=== PATIENT | female | born 1950 | race Caucasian/White ===

== ENCOUNTER 2018-04-29 13:46 | Outpatient (CLI) | payer BC, MEDICARE, OTHER ==
--- NOTE | 2018-04-29 14:32 | XRAY Report ---
Reason: UNSP FRACTURE OF UNSP FOOT Procedure Date: 04/29/2018 Accession Number: [id number] / [id number] Procedure: XR - Foot 3 View RT CPT Code: FULL RESULT: EXAM: RIGHT FOOT RADIOGRAPHY EXAM DATE: 04/29/2018 02:00 PM. CLINICAL HISTORY: Unspecified fracture of unspecified foot. COMPARISON: None. TECHNIQUE: 3 views. FINDINGS: Bones: Normal. No fractures or bone lesions. Joints: Normal. No subluxations. Soft Tissues: Mild dorsal midfoot swelling of the soft tissues. IMPRESSION: No fracture or dislocation is identified. RADIA
== END 2018-04-29 13:47 | disposition home or self-care (01) ==
LOC: DI 13:46
PROVIDERS: ATTEND Internal Medicine
DX: S99.921A Unspecified injury of right foot, initial encounter (principal)

== ENCOUNTER 2019-02-22 15:46 | Outpatient (CLI) | payer BC, MEDICARE ==
--- NOTE | 2019-03-06 08:54 | Mammography Report ---
Reason: ROUTINE MAMMO Procedure Date: 02/22/2019 Accession Number: [id number] / [id number] Procedure: PERI - Screening Mammo w/Al CPT Code: Final Report FULL RESULT: EXAM: Screening Mammo w/Al DATE: 02/22/2019 4:18 PM CLINICAL HISTORY: Screening encounter. History of endometrial cancer. TECHNIQUE: (B) - Bilateral CC and MLO views were obtained. COMPARISON: 10/23/2015 and 07/30/2014. PARENCHYMAL PATTERN: (A) - The breast(s) demonstrate(s) scattered fibroglandular densities. FINDINGS: There are no suspicious masses, calcifications, or areas of distortion. IMPRESSION: Negative examination. BI-RADS category 1. RECOMMENDATION: (ANNUAL) - Recommend routine annual screening mammography. BI-RADS CATEGORY: (1) - Negative. STANDARD QUALIFYING STATEMENTS: 1. This examination was not reviewed with the aid of Computer-Aided Detection (CAD). 2. A negative or benign imaging report should not preclude biopsy if clinically suspicious findings are present. 3. Dense breasts may obscure an underlying neoplasm. 4. This examination was reviewed with the aid of 3D breast imaging (tomosynthesis).
== END 2019-02-22 15:47 | disposition home or self-care (01) ==
LOC: DI 15:46
PROVIDERS: ATTEND Internal Medicine
DX: Z12.31 Encounter for screening mammogram for malignant neoplasm of breast (principal)
CPT/HCPCS: 77063; 77067

== ENCOUNTER 2020-12-16 11:00 | Outpatient (CLI) | payer MEDICARE ==
--- NOTE | 2020-12-17 14:34 | Mammography Report ---
BILATERAL DIGITAL SCREENING MAMMOGRAM 3D/2D: 12/16/2020 CLINICAL: Routine screening. Comparison is made to exams dated: 02/22/2019 mammogram - [facility], 02/22/2016 m am[facility]rav[facility], and 07/30/2014 mammogram - [facility] [place]. There are scattered fibrogland ular elements in both breasts. No significant masses, calcifications, or other findings are seen in either breast. There has been no significant interval change. IMPRESSION: NEGATIVE There is no mammographic evidence of malignancy. A 1 year screening mammogram is recommended. This exam was interpreted at Station ID: [id number]. NOTE: For mammograms, a report in lay terms will be sent to the patient. Approximately 15% of breast malignancies will not be visualized mammographically. In the management of a palpable breast mass, a negative mammogram must not discourage biopsy of a clinically suspicious lesion. Electronically Signed By: Pavel Abdalla M.D. [email or web address]/penrad:12/16/2020 12:05:27 ACR BI-RADS Category 1: Negative 3341F PARENCHYMAL PATTERN: (A) - The breast(s) demonstrate(s) scattered fibroglandular densities. BI-RADS CATEGORY: (1) - 1 RECOMMENDATION: (ANNUAL) - Recommend routine annual screening mammography. [id number] 1 year screening LATERALITY: (B)
== END 2020-12-16 13:00 ==
LOC: DI.S 11:00
DX: Z12.31 Encounter for screening mammogram for malignant neoplasm of breast (principal)

== ENCOUNTER 2022-04-07 13:07 | Outpatient (CLI) | payer MEDICARE ==
--- NOTE | 2022-04-08 09:13 | Mammography Report ---
BILATERAL DIGITAL SCREENING MAMMOGRAM 3D/2D: 04/07/2022 CLINICAL: Routine screening. Comparison is made to exams dated: 12/16/2020 mammogram, 02/22/2019 mammogram - [facility], and 10/23/2015 mammogram - [facility]. There are scattered areas of fibroglandular density in both breasts (category b / 25%-50% glandular t issue). No significant masses, calcifications, or other findings are seen in either breast. There has been no significant interval change. IMPRESSION: NEGATIVE There is no mammographic evidence of malignancy. A 1 year screening mammogram is recommended. Based on the Tyrer Cuzick model (a risk assessment model) the patients lifetime risk is 3.0% and her 10 year risk is 2.0%. According to the ACR, ACS, and NCCN guidelines, an annual breast MRI exam steffany g with mammogram is recommended if the patients lifetime risk is 20% or greater. This exam was interpreted at Station ID: [id number]. NOTE: For mammograms, a report in lay terms will be sent to the patient. Approximately 15% of breast malignancies will not be visualized mammographically. In the management of a palpable breast mass, a negative mammogram must not discourage biopsy of a clinically suspicious lesion. Electronically Signed By: Sukhi avitia/kam:04/07/2022 17:12:52 ACR BI-RADS Category 1: Negative 3341F PARENCHYMAL PATTERN: (A) - The breast(s) demonstrate(s) scattered fibroglandular densities. BI-RADS CATEGORY: (1) - 1 RECOMMENDATION: (ANNUAL) - Recommend routine annual screening mammography. [id number] 1 year screening LATERALITY: (B)
== END 2022-04-07 13:08 | disposition home or self-care (01) ==
LOC: DI 13:07
PROVIDERS: ATTEND Internal Medicine
DX: Z12.31 Encounter for screening mammogram for malignant neoplasm of breast (principal)

== ENCOUNTER 2023-08-13 13:20 | Emergency (ER) | payer MEDICARE ==
--- NOTE | 2023-08-13 14:05 | ED Physician Documentation ---
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 Patient had just received a total of 25 treatments of radiation therapy to the brain last treatment was on August 10. Since then she has been having increased shortness of breath severe worsening back pain. She is on Eliquis right now for history of pulmonary embolism That she was diagnosed with this April. Patient's says that she is unable to ambulate more than 10 feet Without severe shortness of breath. PD PAST MEDICAL HISTORY - Past Medical History Past Medical History: Yes - Present Medications Home Medications: Ambulatory Orders Medication Instructions Recorded Confirmed Acetaminophen [Tylenol] 1 tab PO DAILY 08/13/23 08/13/23 Apixaban [Eliquis] 1 tab PO DAILY 08/13/23 08/13/23 Atorvastatin [Lipitor] 1 tab PO DAILY 08/13/23 08/13/23 Calcium Carbonate [Calcium] 1 tab PO DAILY 08/13/23 08/13/23 Insulin Lispro [Humalog] 1 unit SUBQ DAILY 08/13/23 08/13/23 Insulin NPH Human Isophane 1 unit SUBQ DAILY 08/13/23 08/13/23 [Humulin N Kwikpen] Lacosamide 1 tab PO DAILY 08/13/23 08/13/23 Levetiracetam [Keppra Xr] 1 tab PO DAILY 08/13/23 08/13/23 Losartan [Cozaar] 2 tab PO DAILY 08/13/23 08/13/23 Melatonin 1 tab PO DAILY 08/13/23 08/13/23 Memantine [Namenda] 2 tab PO DAILY 08/13/23 08/13/23 Multivitamin 1 tab PO DAILY 08/13/23 08/13/23 Nystatin [Klayesta] 1 applic TOP PRN PRN 08/13/23 08/13/23 Pantoprazole [Protonix] 1 tab PO DAILY 08/13/23 08/13/23 Senna [Senokot] 1 tab PO DAILY 08/13/23 08/13/23 Sertraline [Zoloft] 1 tab PO DAILY 08/13/23 08/13/23 Sitagliptin [Zituvio] 1 tab PO DAILY 08/13/23 08/13/23 Sulfamethox/Trimeth 800/160 1 tab PO DAILY 08/13/23 08/13/23 [Bactrim Ds] Zolpidem [Ambien] 1 tab PO DAILY PRN 08/13/23 08/13/23 amLODIPine [Norvasc] 1 tab PO DAILY 08/13/23 08/13/23 dexAMETHasone [Decadron] 1 tab PO DAILY 08/13/23 08/13/23 hydrOXYzine HCL [Hydroxyzine HCl] 1 tab PO PRN PRN 08/13/23 08/13/23 metFORMIN [Glucophage] 2 tab PO DAILY 08/13/23 08/13/23 polyethylene glycoL 3350 [Miralax] 1 applic PO PRN PRN 08/13/23 08/13/23 traZODone [Desyrel] 1 tab PO DAILY 08/13/23 08/13/23 - Allergies Allergies/Adverse Reactions: Allergies Allergy/AdvReac Type Severity Reaction Status Date / Time No Known Drug Allergies Allergy Verified 08/13/23 13:25 - Social History Does the pt smoke?: No Smoking Status: Never smoker Does the pt drink ETOH?: No Does the pt have substance abuse?: No - Immunizations Immunizations are current?: Yes PD ED PE NORMAL - Vitals Vital signs reviewed: Yes - General General: Alert and oriented X 3, No acute distress, Well developed/nourished - HEENT HEENT: Atraumatic, PERRL, EOMI - Cardiac Cardiac: RRR - Respiratory Respiratory: No respiratory distress, Clear bilaterally, Other (Diminished bilaterally) - Abdomen Abdomen: Normal bowel sounds, Soft, Non tender, No organomegaly - Back Back: No CVA TTP, No spinal TTP - Derm Derm: Normal color, Warm and dry, No rash - Neuro Neuro: Alert and oriented X 3, front office assistant 2-12 intact, No motor deficit, No sensory deficit, Normal speech - Psych Psych: Normal mood Results - Vitals Vitals: Vital Signs - 24 hr 08/13/23 08/13/23 08/13/23 13:20 15:10 16:03 Temperature 36.1 C L Heart Rate 85 74 74 Respiratory 17 18 19 Rate Blood Pressure 110/57 L 135/78 H 130/57 L O2 Saturation 95 98 94 08/13/23 17:25 Temperature Heart Rate 78 Respiratory 18 Rate Blood Pressure 134/82 H O2 Saturation 98 Oxygen O2 Source Room air - Labs Labs: Laboratory Tests 08/13/23 08/13/23 08/13/23 14:15 14:15 14:15 WBC 6.9 RBC 3.54 L Hgb 11.3 L Hct 35.8 L MCV 101.1 H MCH 31.9 H MCHC 31.6 L RDW 15.3 H Plt Count 167 MPV 9.7 Neut # (Auto) 6.0 Lymph # (Auto) 0.5 L [place] # (Auto) 0.3 Eos # (Auto) 0.0 Baso # (Auto) 0.0 Absolute Nucleated RBC 0.00 Nucleated RBC % 0.0 Sodium 139 Potassium 3.7 Chloride 107 Carbon Dioxide 25 Anion Gap 7.0 BUN 21 H Creatinine 1.1 Estimated GFR (MDRD) 49 L Glucose 207 H Calcium 9.0 Magnesium 1.3 L Total Bilirubin 0.3 AST 15 ALT 32 Alkaline Phosphatase 40 L Troponin I High Sens 6.8 Total Protein 5.1 L Albumin 3.5 Globulin 1.6 L Albumin/Globulin Ratio 2.2 Lipase 58 Nasal Adenovirus (PCR) Nasal B. parapertussis DNA (PCR) Nasal Coronavir 229E PCR Nasal Coronavir HKU1 PCR Nasal Coronavir NL63 PCR Nasal Coronavir OC43 PCR Nasal Enterovir/Rhinovir PCR Nasal Influenza B PCR Nasal Influenza A PCR Nasal Parainfluen 1 PCR Nasal Parainfluen 2 PCR Nasal Parainfluen 3 PCR Nasal Parainfluen 4 PCR Nasal RSV (PCR) Nasal B.pertussis DNA PCR Nasal C.pneumoniae (PCR) Haroldo Human Metapneumo PCR Nasal M.pneumoniae (PCR) Nasal SARS-CoV-2 (PCR) 08/13/23 14:15 WBC RBC Hgb Hct MCV MCH MCHC RDW Plt Count MPV Neut # (Auto) Lymph # (Auto) [place] # (Auto) Eos # (Auto) Baso # (Auto) Absolute Nucleated RBC Nucleated RBC % Sodium Potassium Chloride Carbon Dioxide Anion Gap BUN Creatinine Estimated GFR (MDRD) Glucose Calcium Magnesium Total Bilirubin AST ALT Alkaline Phosphatase Troponin I High Sens Total Protein Albumin Globulin Albumin/Globulin Ratio Lipase Nasal Adenovirus (PCR) NOT DETECTED Nasal B. parapertussis DNA (PCR) NOT DETECTED Nasal Coronavir 229E PCR NOT DETECTED Nasal Coronavir HKU1 PCR NOT DETECTED Nasal Coronavir NL63 PCR NOT DETECTED Nasal Coronavir OC43 PCR NOT DETECTED Nasal Enterovir/Rhinovir PCR NOT DETECTED Nasal Influenza B PCR NOT DETECTED Nasal Influenza A PCR NOT DETECTED Nasal Parainfluen 1 PCR NOT DETECTED Nasal Parainfluen 2 PCR NOT DETECTED Nasal Parainfluen 3 PCR NOT DETECTED Nasal Parainfluen 4 PCR NOT DETECTED Nasal RSV (PCR) NOT DETECTED Nasal B.pertussis DNA PCR NOT DETECTED Nasal C.pneumoniae (PCR) NOT DETECTED Haroldo Human Metapneumo PCR NOT DETECTED Nasal M.pneumoniae (PCR) NOT DETECTED Nasal SARS-CoV-2 (PCR) NOT DETECTED - Rads (name of study) Angio chest CT Relevant Findings:: Final report received, EMP independent interpretation of test, Other (No acute pulmonary process no pulmonary emboli) PD Medical Decision Making - ED course ED course: 73-year-old female presents emergency department for increased shortness of breath. Differentials include but are not limited to pneumonia, fatigue after extensive radiation treatment, deconditioning, pneumonia, worsening metastatic disease. CT angio for pulmonary embolism was complete and there is no evidence of pulmonary emboli unremarkable thoracic aorta, no acute pulmonary processes and no evidence of metastatic disease in the chest. There is no abnormalities of the thoracic spine. Labs were also complete while she was here she has no leukocytosis she appears to have chronic anemia, hemoglobin 11.3 she is not neutropenic. CMP also complete BUN slightly elevated at 21 GFR 49, magnesium 1.3, potassium normal. 50 mg IV magnesium was given in the ER as well as 1 L of IV fluids. Respiratory swab was negative. At this point in time I am not seeing anything obvious that is causing patient's increased shortness of breath. She does not appear to be in any acute distress she is not hypoxic and remains hemodynamically stable. Patient and her are eager to discharge home their main concern was possible pulmonary embolism. They plan on following up with oncology about today's ER visit for further evaluation and workup as needed. They were given strict ER return precautions and all questions answered. Departure - Departure Disposition: 01 Home, Self Care Clinical Impression: Hypomagnesemia, Back pain, Shortness of breath Instructions: ED Chest Pain Atypical Unkn Cause Comments: Thank you for trusting us with your care. We have completed a CT for further evaluation of possible pulmonary embolism and we are not seeing any acute findings on CT at this point in time. You are little bit low on your magnesium so gave you some IV magnesium here in the emergency department as well as some IV fluids as you do have a mild acute kidney injury. Please come back to the emergency department if you are having any worsening upper back pain, shortness of breath, chest pain, or difficulty breathing, or any other concerning symptoms. Please follow-up with your oncologist to let them know about today's ER visit. Forms: PCP List Discharge Date/Time: 08/13/23 17:25
[2023-08-13 14:39] LABS: EOSINOPHILS % (AUTO) 0.1 %; HCT - HEMATOCRIT 35.8 % (37.0-47.0); HGB - HEMOGLOBIN 11.3 g/dL (12.0-16.0); LYMPHOCYTES # (AUTO) 0.5 10^3/uL (1.5-3.5); LYMPHOCYTES % (AUTO) 7.6 %; MEAN CORPUSCULAR HEMOGLOBIN 31.9 pg (27.0-31.0); MEAN CORPUSCULAR HGB CONC 31.6 g/dL (32.0-36.0); MEAN CORPUSCULAR VOLUME 101.1 fL (81.0-99.0); MEAN PLATELET VOLUME 9.7 fL (7.9-10.8); MONOCYTES # (AUTO) 0.3 10^3/uL (0.0-1.0); MONOCYTES % (AUTO) 4.9 %; PLT - PLATELET COUNT 167 10^3/uL (130-450); RED BLOOD COUNT 3.54 10^6/uL (4.20-5.40); RED CELL DISTRIBUTION WIDTH 15.3 % (12.0-15.0); WHITE BLOOD COUNT 6.9 x10^3/uL (4.8-10.8)
[2023-08-13 14:52] LABS: MAGNESIUM 1.3 mg/dL (1.7-2.3)
[2023-08-13 14:58] LABS: ALBUMIN 3.5 g/dL (3.2-5.5); ALBUMIN/GLOBULIN RATIO 2.2 (1.0-2.2); BILIRUBIN,TOTAL 0.3 mg/dL (0.2-1.0); CREATININE 1.1 mg/dL (0.6-1.3); POTASSIUM 3.7 mmol/L (3.5-4.5); TOTAL PROTEIN 5.1 g/dL (6.4-8.9)
[2023-08-13] MEDS ORDERED: iohexoL-300 100 ML VIAL ONE (15:24)
[2023-08-13 15:26] LABS: B. PARAPERTUSSIS- RESP PCR PAN NOT DETECTED; B. PERTUSSIS- RESP PCR PANEL NOT DETECTED; C. PNEUMONIAE- RESP PCR PANEL NOT DETECTED; CORONAVIRUS 229E-RESP PCR NOT DETECTED; CORONAVIRUS HKU1-RESP PCR NOT DETECTED; CORONAVIRUS NL63-RESP PCR NOT DETECTED; CORONAVIRUS OC43-RESP PCR NOT DETECTED; HUMAN METAPNEUMOVIRUS NOT DETECTED; INFLUENZA A- RESP PCR PANEL NOT DETECTED; INFLUENZA B - RESP PCR PANEL NOT DETECTED; M. PNEUMONIAE- RESP PCR PANEL NOT DETECTED; PARAINFLUENZA VIRUS 1 NOT DETECTED; PARAINFLUENZA VIRUS 2 NOT DETECTED; PARAINFLUENZA VIRUS 3 NOT DETECTED; PARAINFLUENZA VIRUS 4 NOT DETECTED; RHINOVIRUS/ENTEROVIRUS NOT DETECTED; RSV- RESP PCR PANEL NOT DETECTED; SARS-CoV-2 -RESP PCR PANEL NOT DETECTED
[2023-08-13] MEDS: MAGNESIUM SULFATE 2 GRAM 2 GM/50 ML BAG IV ONE (15:46)
[2023-08-13] MEDS: SODIUM CHLORIDE 0.9% 1,000 ML IV ONE (15:46)
[2023-08-13] MEDS: iohexoL-300 100 ML VIAL IVP ONE (15:47)
--- NOTE | 2023-08-13 16:13 | CT Report ---
PROCEDURE: Angio Chest INDICATIONS: severe back pain hx of PE, has cancer CONTRAST: 80ml omni 300 TECHNIQUE: After the administration of intravenous contrast, 2 mm axial images were acquired from the pulmonary apices to the posterior costophrenic angles during the arterial phase. In addition, 1 mm lung kernel and 5 mm soft tissue kernel reconstructions were performed. 3-dimensional coronal oblique maximum int ensity projection (MIP) reformats, 8 mm axial MIP, and 5 mm coronal and sagittal MPR reformats were t hen performed through the thorax. For radiation dose reduction, the following was used: automated exp osure control, adjustment of mA and/or kV according to patient size. COMPARISON: None. FINDINGS: Image quality: Excellent. Large vessels: Normal sized pulmonary arteries. No pulmonary emboli. Thoracic aorta is of normal laura lola without dissection. Bovine arch anatomy. Great vessel origins are widely patent. Lungs and pleura: No consolidation. No pleural effusions. No pneumothorax. No suspicious pulmonary n odules which require follow up. Mediastinum: Heart size is normal. No pericardial effusion. No large vessel abnormality. No mediastin al adenopathy by size criteria. A right chest Port-A-Cath is present. Chest wall and lower neck: Thyroid is unremarkable. No axillary or supraclavicular adenopathy by size . Bones: No aggressive osseous abnormality. Upper Abdomen: Unremarkable. IMPRESSION: 1. No pulmonary emboli. 2. Unremarkable thoracic aorta and its attachments. 3. No acute pulmonary process. 4. No evidence of metastatic disease in the chest. 5. Unremarkable appearance of thoracic spine. Reviewed by: Sunny Chin MD on 08/13/2023 4:11 PM PDT Approved by: Sunny Chin MD on 08/13/2023 4:11 PM PDT Station ID: [id number]
[2023-08-13 17:28] VITALS: BP 134/82; O2SAT 98
== END 2023-08-13 17:25 | disposition home or self-care (01) ==
LOC: ED 13:20
DX: E83.42 Hypomagnesemia (principal); M54.9 Dorsalgia, unspecified; Z86.711 Personal history of pulmonary embolism; Z79.01 Long term (current) use of anticoagulants
CPT/HCPCS: 36415; 71275; 80053; 83690; 83735; 84484; 85025; 87633; 93005; 96365; 96375; 99284; Q9967

== ENCOUNTER 2023-08-30 10:43 | Outpatient (CLI) | payer MEDICARE | END 2023-08-30 22:23 | disposition left against medical advice (07) | LOC: EMS 10:43 | DX: R55 Syncope and collapse (principal); R53.1 Weakness; R09.89 Other specified symptoms and signs involving the circulatory and respiratory systems; R11.0 Nausea ==

== ENCOUNTER 2023-11-13 11:38 | Outpatient (CLI) | payer MEDICARE | END 2023-11-13 23:59 | disposition EMS.NT | LOC: EMS 11:38 | DX: R07.9 Chest pain, unspecified (principal); R53.1 Weakness; R29.6 Repeated falls ==

== ENCOUNTER 2023-12-01 04:50 | Outpatient (CLI) | payer MEDICARE | END 2023-12-01 23:59 | LOC: EMS 04:50 | DX: I46.9 Cardiac arrest, cause unspecified (principal) | CPT/HCPCS: A0425; A0428 ==